=== PATIENT | male | born 1945 ===

== ENCOUNTER → 2020-02-04 | Outpatient (CLI) | payer OTHER | LOC: GMA MATASK 14:39 | PROVIDERS: ATTEND Family Medicine | DX: Z13.6 Encounter for screening for cardiovascular disorders (principal); Z12.5 Encounter for screening for malignant neoplasm of prostate ==

== ENCOUNTER → 2020-05-18 | Outpatient (CLI) | payer MEDICARE, OTHER | LOC: GMA MATASK 14:47 | PROVIDERS: ATTEND Family Medicine | DX: E03.9 Hypothyroidism, unspecified (principal) ==